=== PATIENT | male | born 1995 | race Caucasian/White ===

== ENCOUNTER 2022-04-04 18:52 | Emergency (ER) | payer MEDICAID ==
[~2022-04-04] VITALS: Ht 167.6 cm; Wt 65.0 kg
[2022-04-04] MEDS ORDERED: ACYC200C31 MT (22:09)
[2022-04-04 22:26] VITALS: BP 134/79
== END 2022-04-04 22:28 | disposition home or self-care (01) ==
LOC: ER 18:52
DX: R21 Rash and other nonspecific skin eruption (principal); B34.9 Viral infection, unspecified
CPT/HCPCS: 99281

== ENCOUNTER 2022-06-27 07:43 | Emergency (ER) | payer MEDICAID ==
[~2022-06-27] VITALS: Ht 172.7 cm; Wt 75.0 kg
[~2022-06-27 07:43] MED LIST: ACYC200C31 MT
[2022-06-27 08:02] VITALS: BP 125/71
[2022-06-27] MEDS ORDERED: KETO15CR2 TP (08:16)
== END 2022-06-27 08:25 | disposition home or self-care (01) ==
LOC: ER 07:43
DX: B35.4 Tinea corporis (principal)
CPT/HCPCS: 99281

== ENCOUNTER 2025-02-11 18:40 | Emergency (ER) | payer MEDICAID, OTHER ==
[~2025-02-11] VITALS: Ht 172.7 cm; Wt 72.5 kg
[~2025-02-11 18:40] MED LIST changes: +KETO15CR2 TP
[2025-02-11 18:44] VITALS: O2SAT 98
[2025-02-11] MEDS ORDERED: HC A30CR10 RC (19:03)
[2025-02-11] MEDS ORDERED: MUPI22OI2 TP (19:03)
[2025-02-11 19:30] VITALS: BP 145/98; PULSE 53; RESP 17; TEMP 36.7; O2SAT 100
== END 2025-02-11 22:42 | disposition home or self-care (01) ==
LOC: ER 18:40
DX: R21 Rash and other nonspecific skin eruption (principal); Z79.899 Other long term (current) drug therapy
CPT/HCPCS: 99283